=== PATIENT | female | born 1965 | race Caucasian/White ===

== ENCOUNTER → 2016-02-13 | Outpatient (CLI) | payer OTHER, MEDICAID ==
[~2016-02-13] MED LIST: ADDERALL20 MG PO; ALBUTEROL SULFAT3 M3 IH; ALBUTEROL1.25 MG/3 IH; BENADRYL50 MG; CLARITIN 1010 MG/TAB PO; CLINDAMYCIN300 MG PO; COZAAR 50MG50 MG/TAB PO; COZAAR100 MG PO; CYANOCOBAL1000 MCG/M IM; DOXYCYCLINE 10100 MG PO; LOPRESSOR 225 MG/TAB PO; MASON NATURAL2000 IU PO; NEXIUM 20MG CAP20 MG PO; PEPCID 20MG TAB20 MG PO; PHENERGAN 25 TA25 MG PO; PREVACID 30MG30 M1 PO; PROBIOTIC-MAJOR PO; TUSS PO; VENTOLIN0.09 MG IH; VIT D; ZANTAC 150MG T150 MG PO; ZOFRAN 4MG T4 MG/TAB PO; ZOFRAN4 MG PO; ZOLOFT50 MG PO; ZYRTEC 10MG10 MG PO; vitamin B 12 IM
== END ==
LOC: COL.RAD 13:21
DX: M25.551 Pain in right hip (principal)
CPT/HCPCS: A9585; Q9967

== ENCOUNTER → 2016-02-26 | Outpatient (CLI) | payer OTHER, MEDICAID | LOC: COL.RAD 10:19 | DX: M25.551 Pain in right hip (principal) | CPT/HCPCS: J3301; Q9967 ==

== ENCOUNTER 2016-03-02 13:03 | Emergency (ER) | payer MEDICAID ==
[~2016-03-02 13:03] MED LIST changes: -COZAAR100 MG PO; -CYANOCOBAL1000 MCG/M IM; -MASON NATURAL2000 IU PO
[2016-03-02] MEDS ORDERED: COZAAR100 MG PO (13:14)
[2016-03-02] MEDS ORDERED: CYANOCOBAL1000 MCG/M IM (13:14)
[2016-03-02] MEDS ORDERED: MASON NATURAL2000 IU PO (13:25)
[2016-03-02 14:01] LABS: HEMATOCRIT 43.9 % (37.0-47.0); HEMOGLOBIN 14.9 g/dl (12.5-16.0); MEAN CELL VOLUME 92 fl (80.0-100.0); MEAN CORPUSCULAR HEMOGLOBIN 31 pg (27.0-31.0); MEAN CORPUSCULAR HGB CONC 34 g/dl (33.0-37.0); MEAN PLATELET VOLUME 11.3 fl (7.4-10.4); PLATELET COUNT 289 K/mm3 (130-400); RED BLOOD COUNT 4.78 M/mm3 (4.10-5.30); REDCELL DISTRIBUTION WIDTH-CV 12.4 % (11.5-14.5)
[2016-03-02 14:08] LABS: ADD PATHOLOGY DIFF REVIEW NO; WHITE BLOOD COUNT 20.5 K/mm3 (4.8-10.8)
[2016-03-02 14:31] LABS: BAND 5 % (0-10); EOSINOPHIL 2 % (0-4); NEUTROPHILS 57 % (42.0-75.2); PLATELET ESTIMATE NORMAL (NORMAL); TOTAL CELLS COUNTED 100
[2016-03-02 14:40] LABS: ALANINE AMINOTRANSFERASE 35 U/L (9-52); ALBUMIN 4.5 gm/dL (3.5-5.0); ALKALINE PHOSPHATASE 79 U/L (50-136); ANION GAP 12 mmol/L (7-16); BILIRUBIN,TOTAL 0.9 mg/dL (0.0-1.0); BLOOD UREA NITROGEN 18 mg/dL (7-17); CALCIUM 10.4 mg/dL (8.4-10.2); CARBON DIOXIDE 26 mmol/L (22-30); CHLORIDE 100 mmol/L (98-107); CREATININE, serum 0.67 mg/dL (0.52-1.25); GLUCOSE 123 mg/dL (74-106); POTASSIUM 3.6 mmol/L (3.4-5.0); SODIUM 138 mmol/L (137-145); TOTAL PROTEIN 8.1 gm/dL (6.4-8.2)
[2016-03-02 14:53] LABS: TROPONIN-I < 0.012 ng/mL (0.000-0.034)
[2016-03-02 15:39] LABS: PH 6 (5-8); SQUAMOUS EPITHELIAL 0-2 /hpf; URINE APPEARANCE Clear; URINE BACTERIA Rare /hpf; URINE BILIRUBIN Negative (NEGATIVE); URINE BLOOD 1+ (NEGATIVE); URINE COLOR Straw; URINE GLUCOSE Negative (NEGATIVE); URINE KETONE Negative (NEGATIVE); URINE RBC 0-2 /hpf; URINE UROBILINOGEN Negative (NEGATIVE); URINE WBC 0-2 /hpf
[2016-03-02 16:08] VITALS: BP 123/85; PULSE 96
== END 2016-03-02 16:10 | disposition home or self-care (01) ==
LOC: COL.ER 13:03
PROVIDERS: Emergency Medicine
DX: I47.1 Supraventricular tachycardia (principal); R00.2 Palpitations
CPT/HCPCS: J7030

== ENCOUNTER → 2016-03-12 | Outpatient (CLI) | payer OTHER ==
[~2016-03-12] MED LIST changes: +COZAAR100 MG PO; +CYANOCOBAL1000 MCG/M IM; +MASON NATURAL2000 IU PO
== END ==
LOC: MC.RAD 15:17
DX: Z12.31 Encounter for screening mammogram for malignant neoplasm of breast (principal); N64.9 Disorder of breast, unspecified

== ENCOUNTER → 2016-03-14 | Outpatient (CLI) | payer OTHER | LOC: MC.RAD 13:17 | DX: N63 Unspecified lump in breast (principal) ==

== ENCOUNTER 2016-10-29 11:15 | Outpatient (RCR) | payer BC | END 2016-12-24 09:02 | LOC: MKS.ESL.PT 11:15 | DX: M25.561 Pain in right knee (principal); M25.562 Pain in left knee; R29.6 Repeated falls; R29.3 Abnormal posture; Z74.09 Other reduced mobility ==

== ENCOUNTER → 2017-05-23 | Outpatient (CLI) | payer BC | LOC: COL.RAD 11:18 | DX: M25.551 Pain in right hip (principal) | CPT/HCPCS: J3301; Q9967 ==

== ENCOUNTER → 2018-06-19 | Outpatient (CLI) | payer MEDICARE ==
[~2018-06-19] MED LIST changes: +ADDERALL XR20 MG PO; +ATIVAN 0.50.5 MG/TAB PO; +CYMBALTA 60MG60 MG PO; +ERGOCALCIFER50000 IU PO; +TOPROL XL 25MG25 MG PO
== END ==
LOC: MC.RAD 10:48
DX: Z12.31 Encounter for screening mammogram for malignant neoplasm of breast (principal)

== ENCOUNTER → 2020-09-28 | Outpatient (CLI) | payer MEDICARE | LOC: MC.RAD 14:12 | DX: Z12.31 Encounter for screening mammogram for malignant neoplasm of breast (principal) ==